=== PATIENT | male | born 1995 | race African-American/Black ===

== ENCOUNTER 2018-09-08 19:16 | Emergency (ER) | payer BC, OTHER ==
--- NOTE | 2018-09-08 21:22 | ER Document Report ---
ED General - General Chief Complaint: STD Exposure Stated Complaint: POSSIBLE STD EXPOSURE Time Seen by Provider: 09/08/18 21:09 Mode of Arrival: Ambulatory Information source: Patient TRAVEL OUTSIDE OF THE [place] IN LAST 30 DAYS: No - HPI Patient complains to provider of: Possible STD exposure Onset: Yesterday Onset/Duration: Gradual Quality of pain: No pain Severity: None Associated symptoms: None. denies: Chills, Fever Exacerbated by: Denies Relieved by: Denies Similar symptoms previously: No Recently seen / treated by doctor: No Notes: 22-year-old -[place] male coming in today chief complaint of a little bit of urethral itching over the past week. Does not have any discharge or dysuria. He recently touch base with a girl that he had sex with and she told him that she test positive for chlamydia. - Related Data Allergies/Adverse Reactions: No Known Allergies Allergy (Verified 09/08/18 19:19) Past Medical History - General Information source: Patient - Social History Smoking Status: Smoker,Current Status Unk Family History: Reviewed & Not Pertinent Review of Systems - Review of Systems Notes: Constitutional: No fevers. No chills. EENT: No eye redness. No eye pain. No ear pain. No sore throat. Cardiovascular: No chest pain. No palpitations. Respiratory: No cough. No shortness of breath. No respiratory distress. Gastrointestinal: No abdominal pain. No nausea, vomiting, or diarrhea. Genitourinary: Positive urethral irritation Musculoskeletal: Atraumatic. No swelling. No deformities. Skin: No rash or lesions. Lymphatic: No swollen lymph nodes. Neurologic: No headache. No syncope. Psychiatric: No suicidal or homicidal ideation. Physical Exam - Vital signs Vitals: Temp Pulse Resp BP Pulse Ox 98.9 F 73 16 130/78 H 99 09/08/18 19:46 09/08/18 19:46 09/08/18 19:46 09/08/18 19:46 09/08/18 19:46 - Notes Notes: General: Well-developed Cardiac: Well-perfused. Pulmonary: No respiratory distress. Abdominal: Non-distended. HEENT: Head is atraumatic. Conjunctivae not reddened. No tearing. PERRL. EOMI. Orbits atraumatic. No periorbital swelling or erythema. Neck: Supple. Dermatologic: Warm with good turgor. Chest: Atraumatic. No chest wall tenderness to palpation. Musculoskeletal: Moves all extremities well. No range of motion deficits. Genitourinary: Examination deferred Neurologic: No gross neurologic deficits. Psychiatric: Normal mood. Course - Re-evaluation Re-evalutation: 09/08/18 21:24 Patient states that the sexual partner told him that she was positive for chlamydia. He has to be tested for a whole panel of STDs but notified him that we do not typically work-up all STDs here. We will give him the health department for follow-up for that. We will have him submit a dirty urinalysis and we will go ahead and treat him for the chlamydia and gonorrhea even though he only thinks he was exposed to chlamydia. 09/08/18 21:26 - Vital Signs Vital signs: Temp Pulse Resp BP Pulse Ox 98.9 F 73 16 130/78 H 99 09/08/18 19:46 09/08/18 19:46 09/08/18 19:46 09/08/18 19:46 09/08/18 19:46 Discharge - Discharge Clinical Impression: Urethritis Condition: Good Disposition: HOME, SELF-CARE Instructions: Urethritis ([facility]) Additional Instructions: I always treat my patients for gonorrhea and chlamydia just to be absolutely sure that you are not already carrying one or the other. Your test results will be back in a couple of days. You can always come to medical records to get your test results. [facility] - Follow up as needed
[2018-09-08] MEDS ORDERED: CEFTRIAXONE INJ 250 MG VIAL IM ONE (21:33)
[2018-09-08] MEDS ORDERED: LIDOCAINE 1% INJ (10 MG/ML) 10 ML MDV INJ ONE (21:33)
[2018-09-08] MEDS ORDERED: AZITHROMYCIN 250 MG TABLET PO ONE (21:33)
[2018-09-08 21:50] LABS: APPEARANCE,URINE CLEAR; BILIRUBIN,URINE NEGATIVE (NEGATIVE); COLOR,URINE YELLOW; GLUCOSE, URINE NEGATIVE (NEGATIVE); KETONES,URINE TRACE mg/dL (NEGATIVE); LEUKOCYTE ESTERASE,URINE NEGATIVE (NEGATIVE); NITRITE,URINE NEGATIVE (NEGATIVE); PROTEIN,URINE NEGATIVE (NEGATIVE); UROBILINOGEN,URINE NEGATIVE mg/dL (<2.0)
[2018-09-08 22:26] VITALS: BP 155/86
[2018-09-08 23:16] LABS: CHLAM PCR DETECTED (NOT DETECT); GON PCR NOT DETECTED (NOT DETECT)
== END 2018-09-08 22:25 | disposition home or self-care (01) ==
LOC: ER 19:16
DX: Z20.2 Contact with and (suspected) exposure to infections with a predominantly sexual mode of transmission (principal); N34.2 Other urethritis; F17.200 Nicotine dependence, unspecified, uncomplicated
CPT/HCPCS: 99283; 96372; 81001; 87491; 87591; J0696